=== PATIENT | female | born 1935 | race Two or more races ===

== ENCOUNTER → 2018-06-18 | Day surgery (SDC) | payer MEDICARE ==
[~2018-06-18] MED LIST: AMLO5TAB7 PO; FAMO20TA5 PO; FURO-68 PO; IV RINGERS,LACTATED 1000ML 1,000 ML IV ONE; LIDOCAINE 2% 100 MG/5 ML SYRINGE. ONE; OMEP40CA5 PO; PROPOFOL 40 ML IV ONE; SUCR1TAB PO
[2018-06-18 12:55] VITALS: BP 132/78
--- NOTE | 2018-06-20 12:10 | PATHOLOGY ---
[facility] Accession Number: [id number] . 01 Material submitted: . PART A: RANDOM BIOPSY PART B: GASTRO-ESOPHAGEAL BIOPSY . 01 Clinical history: . Abdominal pain . 02 Diagnosis: A. Random gastric biopsy: - Chronic gastritis, mild to moderate, with focal intestinal metaplasia. . B. Gastroesophageal junction biopsy: - Segments of esophagogastric and gastric mucosa showing moderate active chronic inflammation. [facility]/06/19/2018 . 02 Comment: Sections of the random gastric biopsy reveal segments of gastric antral and gastric body mucosa. The gastric body mucosa shows congestion and mild superficial chronic inflammation. The gastric antral mucosa shows moderate chronic inflammation with a small focus of intestinal metaplasia. A properly controlled immunoperoxidase stain for Helicobacter is negative for Helicobacter organisms. Sections of the gastroesophageal junction biopsy reveal segments of esophagogastric and gastric mucosa showing focally active moderate chronic inflammation. There is no evidence of Agarwal's change, dysplasia, or malignancy. (JPM/db/pit; 06/19/2018) . Special stain performed: Immunoperoxidase stain for Helicobacter on A1 . 02 Electronically signed: . Elías Newberry MD, Pathologist NPI- [id number] . 01 Gross description: . A. Received in formalin labeled "Cally Aguillon, random BX, rule out H. pylori," are 2 segments of balderas soft tissue measuring 0.8 x 0.2 x 0.2 cm in aggregate dimensions and ranging from 0.3 to 0.5 cm in maximum dimension. The specimen is submitted entirely in cassette A1. . B. Received in formalin labeled "AguillonCally grace, gastro esophageal BX," are 2 segments of balderas soft tissue measuring 0.9 x 0.3 x 0.2 cm in aggregate dimensions and ranging from 0.4 to 0.5 cm in maximum dimension. The specimen is submitted entirely in cassette B1. (TSD; 06/18/2018) TOB/TOB . 02 Pathologist provided ICD-10: K29.50, K20.8 . 02 CPT . 428109, 669447, [id number] Specimen Comment: A courtesy copy of this report has been sent to Specimen Comment: [phone], . Specimen Comment: Report sent to / DR VIVAS Specimen Comment: A duplicate report has been generated due to demographic updates. Performed at: 01 [facility] [address], [place] [id number] MD Timmy Avalos MD Phone: [phone] Performed at: 02 [facility] [address], [place] [id number] MD Elías Newberry MD Phone: [phone]
== END | disposition home or self-care (01) ==
LOC: SURG 11:12
PROVIDERS: ATTEND Internal Medicine
DX: K44.9 Diaphragmatic hernia without obstruction or gangrene (principal); K29.50 Unspecified chronic gastritis without bleeding; K22.8 Other specified diseases of esophagus; J45.909 Unspecified asthma, uncomplicated; D64.9 Anemia, unspecified; F17.210 Nicotine dependence, cigarettes, uncomplicated; Z79.899 Other long term (current) drug therapy
CPT/HCPCS: 43239; 88305; 88342; J2704